=== PATIENT | female | born 1995 | race Caucasian/White ===

== ENCOUNTER 2017-01-21 19:31 | Emergency (ER) | payer BC ==
[~2017-01-21] VITALS: Ht 162.6 cm; Wt 50.3 kg
--- OUTSIDE RECORDS SUMMARY | 2017-01-21 19:35 | XMS REPORT | Continuity of Care Document ---
Author Author [facility] Organization [facility] Address Unknown Phone Unavailable Allergies Active Description Code Type Severity Reaction Onset Reported/Identified Relationship to Patient Clinical Status Yes No Known Allergies NKA Miscellaneous Allergy Unknown N/A 07/12/2015 Medications Problems Date Dx Coded Attending Type Code Diagnosis Diagnosed By 08/16/1658 DEMARIO BUSBY MD Ot S73.101A 08/16/1658 DEMARIO BUSBY MD Ot Z47.89 08/16/1799 DEMARIO BUSBY MD Ot Z48.89 ENCOUNTER FOR OTHER SPECIFIED SURGICAL A 02/14/2013 Ot 729.89 02/14/2013 Ot V57.1 07/29/2014 Ot V64.2 07/29/2014 Ot 959.11 07/29/2014 Ot E849.8 07/29/2014 Ot E928.8 11/29/2015 Ot V64.2 11/29/2015 Ot 959.11 11/29/2015 Ot E849.8 11/29/2015 Ot E928.8 11/29/2015 Ot V64.2 11/29/2015 Ot 959.11 11/29/2015 Ot E849.8 11/29/2015 Ot E928.8 12/01/2015 Ot V64.2 12/01/2015 Ot 959.11 12/01/2015 Ot E849.8 12/01/2015 Ot E928.8 12/10/2015 DEMARIO BUSBY MD Ot S73.101A UNSPECIFIED SPRAIN OF RIGHT HIP, INITIAL 12/10/2015 DEMARIO BUSBY MD Ot Z47.89 ENCOUNTER FOR OTHER ORTHOPEDIC AFTERCARE 02/18/2016 DEMARIO BUSBY MD Ot Z48.89 ENCOUNTER FOR OTHER SPECIFIED SURGICAL A 02/24/2016 DEMARIO BUSBY MD Ot Z48.89 ENCOUNTER FOR OTHER SPECIFIED SURGICAL A 03/02/2016 DEMARIO BUSBY MD Ot Z48.89 ENCOUNTER FOR OTHER SPECIFIED SURGICAL A 03/03/2016 DEMARIO BUSBY MD Ot Z48.89 ENCOUNTER FOR OTHER SPECIFIED SURGICAL A 03/16/2016 DEMARIO BUSBY MD Ot Z48.89 ENCOUNTER FOR OTHER SPECIFIED SURGICAL A 03/29/2016 DEMARIO BUSBY MD Ot Z48.89 ENCOUNTER FOR OTHER SPECIFIED SURGICAL A 04/05/2016 DEMARIO BUSBY MD Ot Z48.89 ENCOUNTER FOR OTHER SPECIFIED SURGICAL A 04/16/2016 DEMARIO BUSBY MD Ot Z48.89 ENCOUNTER FOR OTHER SPECIFIED SURGICAL A 04/16/2016 DEMARIO BUSBY MD Ot Z48.89 ENCOUNTER FOR OTHER SPECIFIED SURGICAL A 04/25/2016 DEMARIO BUSBY MD Ot Z48.89 ENCOUNTER FOR OTHER SPECIFIED SURGICAL A 04/25/2016 DEMARIO BUSBY MD Ot Z48.89 ENCOUNTER FOR OTHER SPECIFIED SURGICAL A 05/08/2016 DEMARIO BUSBY MD Ot Z48.89 ENCOUNTER FOR OTHER SPECIFIED SURGICAL A 05/09/2016 DEMARIO BUSBY MD Ot Z48.89 ENCOUNTER FOR OTHER SPECIFIED SURGICAL A 05/09/2016 DEMARIO BUSBY MD Ot Z48.89 ENCOUNTER FOR OTHER SPECIFIED SURGICAL A 05/10/2016 DEMARIO BUSBY MD Ot Z48.89 ENCOUNTER FOR OTHER SPECIFIED SURGICAL A 05/25/2016 Ot V64.2 NO PROC/PATIENT DECISION 05/25/2016 Ot 959.11 OTH INJURY OF CHEST WALL 05/25/2016 Ot E849[address] NEC 05/25/2016 Ot E928.8 ACCIDENT NEC 05/25/2016 DEMARIO BUSBY MD Ot Z48.89 ENCOUNTER FOR OTHER SPECIFIED SURGICAL A 05/25/2016 DEMARIO BUSBY MD Ot Z48.89 ENCOUNTER FOR OTHER SPECIFIED SURGICAL A 05/29/2016 DEMARIO BUSBY MD Ot Z48.89 ENCOUNTER FOR OTHER SPECIFIED SURGICAL A 06/11/2016 DEMARIO BUSBY MD Ot Z48.89 ENCOUNTER FOR OTHER SPECIFIED SURGICAL A 06/11/2016 DEMARIO BUSBY MD Ot Z48.89 ENCOUNTER FOR OTHER SPECIFIED SURGICAL A 06/14/2016 DEMARIO BUSBY MD Ot Z48.89 ENCOUNTER FOR OTHER SPECIFIED SURGICAL A 08/07/2016 DEMARIO BUSBY MD Ot Z48.89 ENCOUNTER FOR OTHER SPECIFIED SURGICAL A 08/08/2016 DEMARIO BUSBY MD Ot Z48.89 ENCOUNTER FOR OTHER SPECIFIED SURGICAL A Procedures Results Encounters ACCT No. Visit Date/Time Discharge Status Pt. Type Provider Facility Loc./Unit Complaint [id number] 07/26/2015 15:00:00 2014 23:59:59 CLS Outpatient Micah VALDEZ, [facility]
--- NOTE | 2017-01-21 19:40 | NUR ---
Pt presents to ER, accompanied by mother, with c/o nausea and vomiting with onset today. Pt states her menstrual period started yesterday. She is having abdominal cramps which she states may be due to her period. She has been off her control for one month. This is her first period being off control.
--- OUTSIDE RECORDS SUMMARY | 2017-01-21 19:44 | XMS REPORT | Continuity of Care Document ---
Author Author [facility] Organization [facility] Address Unknown Phone Unavailable Allergies Active Description [...] Status Pt. Type Provider Facility Loc./Unit Complaint [id number] 07/26/2015 15:00:00 2014 23:59:59 CLS Outpatient Micah VALDEZ, [facility]
[2017-01-21] MEDS ORDERED: ONDANSETRON 2 MG/ML (Z0FRAN) 2 ML VIAL IV ONE (19:50)
[2017-01-21] MEDS ORDERED: SODIUM CHLORIDE FLUSH 10 ML SYR IV PRN (19:50)
[2017-01-21] MEDS ORDERED: SODIUM CHLORIDE FLUSH 3 ML SYR IV PRN (19:50)
--- NOTE | 2017-01-21 20:30 | NUR ---
Attempted IV start twice without success. Pt tolerating well. IV obtained to RAC on 2nd attempt by Clarice Mathew RN. Zofran adminsitered for nausea and IVF initiated. Pt resting on cart with warm blankets. Unable to obtain urine specimen yet.
[2017-01-21 20:55] LABS: BASOPHILS % (AUTO) 0 % (0-2); EOSINOPHILS % (AUTO) 0 % (0-4); LYMPHOCYTES # (AUTO) 0.6 X10^3; MEAN CORPUSCULAR HEMOGLOBIN 30.8 PG (26.0-34.0); MEAN CORPUSCULAR HGB CONC 34.2 g/dL (31.0-37.0); MEAN CORPUSCULAR VOLUME 90 FL (80-100); MEAN PLATELET VOLUME 11.4 FL (6.0-9.5); MONOCYTES # (AUTO) 0.2 X10^3; MONOCYTES % (AUTO) 4 % (3-11); NEUTROPHILS # (AUTO) 4.9 X10^3; NEUTROPHILS % (AUTO) 85 % (51-67); PLATELET COUNT 254 10^3uL (150-450); WHITE BLOOD COUNT 5.76 10^3uL (4.0-11.0)
[2017-01-21 21:04] LABS: ALBUMIN 4.8 g/dL (3.4-5.0); ALKALINE PHOSPHATASE 64 U/L (38-126); AMYLASE* 66 U/L (25-115); ANION GAP 20.3 MEQ/L (3-15); BUN/CREATININE RATIO 6 (10-20); CALCULATED IONIZED CALCIUM 3.9 mg/dL (3.8-4.6); LIPASE* 78 U/L (23-300); TOTAL PROTEIN 8.4 g/dL (6.4-8.5)
[2017-01-21 21:11] LABS: BILIRUBIN,URINE Negative (Negative); COLOR,URINE Yellow; GLUCOSE, URINE (UA) Negative (Negative); LEUKOCYTE ESTERASE ,URINE Negative (Negative); PH,URINE 5.5 (5.0 - 8.0); UROBILINOGEN,URINE 0.2 mg/dL (0.2-1.0)
[2017-01-21 21:14] LABS: CLARITY,URINE Slightly Cloudy
[2017-01-21 21:25] LABS: URINE CENTRIFUGED VOLUME <10mL Unspun
[2017-01-21] MEDS ORDERED: ONDAN4ODT PO (22:04)
[2017-01-21] MEDS ORDERED: ED- ONDANSETRON ODT 4 MG (ZOFRAN) 4 TABLETS/BTL PO ONE (22:05)
--- NOTE | 2017-01-21 22:22 | NUR ---
Pt dismissed to home with instructions, prepack and prescription sent to pharmacy. Pt states she is feeling much better. Pt stated her understanding of instructions given. IV site discontinued. Pt left ambulatory to POV with her mother. No other concerns or questions presented upon dismissal.
[2017-01-21 22:34] VITALS: BP 106/61
== END 2017-01-21 22:22 | disposition home or self-care (01) ==
LOC: ED 19:39
DX: N94.4 Primary dysmenorrhea (principal); R11.11 Vomiting without nausea
CPT/HCPCS: 36415; 80053; 81003; 81015; 82150; 83690; 84703; 85025; 86140; 96361; 96374; 99284; J2405; J7030; 99282